=== PATIENT | female | born 1970 | race Caucasian/White ===

== ENCOUNTER 2020-02-12 15:40 | Emergency (ER) | payer MEDICAID, SELFPAY ==
[~2020-02-12] VITALS: Ht 170.2 cm; Wt 95.3 kg
[2020-02-12 16:02] VITALS: BP 155/118
--- NOTE | 2020-02-12 16:14 | NUR ---
Patient ambulated with steady gait to bed 3.
[2020-02-12] MEDS ORDERED: NACL 0.9% 1,000 ML IV ONE (16:25)
--- NOTE | 2020-02-12 16:26 | NUR ---
49 YO F BIB SELF C/O DYSURIA AND CHILLS X 2 DAYS. PT ALSO NOTICED HEMATURIA TODAY. VSS. PT RESTING IN BED COMFORTABLY. ERMD MADE AWARE OF PT STATUS. PMH: NONE MEDS: ADVANI VERA
[2020-02-12 16:53] LABS: APPEARANCE,URINE CLOUDY (CLEAR); BILIRUBIN,URINE 1+ (NEGATIVE); BLOOD, URINE 3+ (NEGATIVE); COLOR,URINE AMBER (YELLOW); LEUKOCYTE ESTERASE ,URINE TRACE (NEGATIVE); NITRITE, URINE NEGATIVE (NEGATIVE); UGLUCOSE NEGATIVE (NEGATIVE)
[2020-02-12 16:54] LABS: BASOPHILS # (AUTO) 0.1 K/uL (0.00-0.22); BASOPHILS % (AUTO) 1.6 % (0.0-2.0); HEMATOCRIT 42.2 % (36-48); HEMOGLOBIN 14.3 g/dL (12.0-16.0); LYMPHOCYTES # (AUTO) 0.8 K/uL (2.5-16.5); LYMPHOCYTES % (AUTO) 14.8 % (20.5-51.1); MEAN CORPUSCULAR HEMOGLOBIN 29 pg (27-31); MEAN CORPUSCULAR HGB CONC 34 g/dL (33-37); MEAN CORPUSCULAR VOLUME 86.1 fL (80-94); MONOCYTES # (AUTO) 0.6 K/uL (0.8-1.0); MONOCYTES % (AUTO) 11.3 % (1.7-9.3); NEUTROPHILS % (AUTO) 72.3 % (42.2-75.2); PLATELET COUNT (AUTO) 149 K/uL (140-450); RED BLOOD CELL COUNT(AUTO) 4.91 MIL/uL (4.20-5.40); RED CELL DISTRIBUTION WIDTH 13.5 % (11.6-13.7); WHITE BLOOD COUNT (AUTO) 5.6 K/uL (4.8-10.8)
--- NOTE | 2020-02-12 17:00 | NUR ---
COVID ALLI SWAB DONE BY JUAN CORONEL. SPECIMEN BROUGHT TO LAB.
[2020-02-12 17:12] LABS: ALBUMIN 3.3 g/dL (3.4-5.0); ANION GAP 13.7 (8-16); CARBON DIOXIDE 26.6 mmol/L (21-32); CREATININE 0.8 mg/dL (0.6-1.3); POTASSIUM 3.3 mmol/L (3.5-5.1); TOTAL BILIRUBIN 0.7 mg/dL (0.0-1.0)
[2020-02-12] MEDS ORDERED: POTASSIUM CHLORIDE 10 MEQ TABER PO ONE (17:35)
[2020-02-12] MEDS ORDERED: KETOROLAC 30 MG/ML VIAL IVP ONE (17:55)
[2020-02-12 18:13] LABS: RBC,URINE 20-50 /HPF (0-5)
[2020-02-12 18:14] LABS: TRICHOMONAS,URINE Moderate /HPF (None Seen)
[2020-02-12 18:17] LABS: WBC,URINE 0-5 /HPF (0-5)
[2020-02-12 18:24] VITALS: BP 150/102
--- NOTE | 2020-02-12 18:24 | NUR ---
IV removed, catheter intact and site benign. Applied folded 2x2 gauze and with paper tape to stop bleeding.
--- NOTE | 2020-02-12 18:24 | NUR ---
Patient discharged with v/s stable. Written and verbal after care instructions given and explained. Patient alert, oriented and verbalized understanding of instructions. Ambulatory with steady gait. All questions addressed prior to discharge. ID band removed. Patient advised to follow up with PMD. Rx of Cephalexin 500mg and Tylenol Extra Strength given. Patient educated on indication of medication including possible reaction and side effects. Opportunity to ask questions provided and answered.
--- NOTE | 2020-02-13 16:45 | NUR ---
Critical value receieved from lab--covid + test result
== END 2020-02-12 18:24 | disposition home or self-care (01) ==
LOC: MED 15:40
DX: R50.9 Fever, unspecified (principal); N39.0 Urinary tract infection, site not specified; Z98.890 Other specified postprocedural states; Z20.828 Contact with and (suspected) exposure to other viral communicable diseases
CPT/HCPCS: 36415; 36600; 71045; 80053; 81001; 81025; 82803; 85025; 87426; 93005; 96361; 96372; 99285; J1885; U0003; 96374